=== PATIENT | male | born 1975 | race Native Hawaiian/Other Pacific Islander ===

== ENCOUNTER 2017-10-01 17:45 | Outpatient (CLI) | payer OTHER | END 2017-10-01 19:20 | disposition home or self-care (01) | LOC: RAD 17:45 | DX: M25.561 Pain in right knee (principal) ==

== ENCOUNTER 2017-11-18 15:03 | Outpatient (CLI) | payer OTHER | END 2017-11-18 16:10 | disposition home or self-care (01) | LOC: MRI 15:03 | DX: M23.231 Derangement of other medial meniscus due to old tear or injury, right knee (principal) ==

== ENCOUNTER 2022-02-18 22:40 | Emergency (ER) | payer OTHER ==
[~2022-02-18] VITALS: Ht 172.7 cm; Wt 108.9 kg
[2022-02-18 23:20] LABS: PLATELET COUNT 325 K/uL (142-355)
[2022-02-19] VITALS: BP 134/80; TEMP 98.5
== END 2022-02-19 00:05 | disposition home or self-care (01) ==
LOC: ED 22:40
PROVIDERS: Hospitalist
DX: R10.84 Generalized abdominal pain (principal); K57.30 Diverticulosis of large intestine without perforation or abscess without bleeding; R11.2 Nausea with vomiting, unspecified; R19.7 Diarrhea, unspecified
CPT/HCPCS: 36415; 80053; 81000; 83690; 85027; 96360; 96374; 96375; 99284; J1170; J1885; J2405; Q9963